=== PATIENT | male | born 1965 | race Caucasian/White ===

== ENCOUNTER 2022-07-02 09:05 | Outpatient (CLI) | payer MEDICAID, SELFPAY ==
--- NOTE | 2022-07-02 09:00 | RT.EKG_ITS ---
APPROVED REPORT Exam: Resting ECG Reason for Exam: syncope Patient Location: O HR:90 bpm ECG Measurements Heart Rate 90 AXIS MD 171 P 64 QRSd 95 QRS -24 QT 372 T -12 QTc 455 Conclusion Sinus rhythm...normal P axis, V-rate 50- 99 Borderline left axis deviation...QRS axis (-15,-29) Poor R wave progression
== END 2022-07-02 09:06 | disposition home or self-care (01) ==
LOC: DI.CARD 09:06
PROVIDERS: Visit Provider Internal Medicine Cardiovascular Disease
DX: R55 Syncope and collapse (principal)
CPT/HCPCS: 93010